=== PATIENT | male | born 1980 | race Caucasian/White ===

== ENCOUNTER 2017-12-30 23:17 | Observation (INO) ==
[2017-12-31] MEDS ORDERED: Morphine Inj 4 MG/ML Vial IV.PUSH PRN (04:15)
[2017-12-31] MEDS ORDERED: Acetaminophen 500 MG Tablet PO PRN (04:15)
[2017-12-31] MEDS: Sod Chloride 0.9% Inj 1,000 ML IV.CONT SCH ×2 (04:36→17:00)
--- NOTE | 2017-12-31 05:43 | CT ---
EXAM DATE: 12/31/2017 5:23 AM EDT AGE/SEX: 37 years / Male INDICATIONS: Chest pain. CLINICAL DATA: This is the patient's initial encounter. Patient reports that signs and symptoms have been present for 1 day and indicates a pain score of 6/10. MEDICAL/SURGICAL HISTORY: . Seizures. . Unspecified brain surgery. RADIATION DOSE: 18.78 CTDI (mGy) COMPARISON: No prior exams available for comparison. TECHNIQUE: Volumetric scanning was performed using a multi-row detector CT scanner during bolus infu suresh of 80 ml Omnipaque 350 (iohexol) nonionic water-soluble contrast as a single exam dose. The bibiana a was post processed with a variety of visualization algorithms including full volume maximum intensi ty projection and sliding thin slab reformation. Using automated exposure control and adjustment of the mA and/or kV according to patient size, radiation dose was kept as low as reasonably achievable t o obtain optimal diagnostic quality images. DICOM format image data is available electronically for review and comparison. FINDINGS: Pulmonary Arteries: No filling defects are seen in the pulmonary arteries out to the subsegmental ve ssels. The left and right pulmonary arteries are normal in diameter. Lung: No infiltrates seen. Effusion: None. Mediastinum: No evidence of mediastinal or hilar adenopathy. Other: The axilla is unremarkable. CONCLUSION: Negative exam. No acute infiltrate or pulmonary embolus to explain current clinical symptoms Electronically signed by: Omer Weston MD 12/31/2017 5:42 AM EDT
[2017-12-31 07:03] LABS: Creatine Kinase 118 U/L (39-308)
[2017-12-31] MEDS ORDERED: Aspirin 325 MG Tablet PO SCH (09:00)
[2017-12-31 09:17] VITALS: RESP 20
--- NOTE | 2017-12-31 11:38 | P.HP ---
History of Present Illness Primary Care Physician: SOFYA MUSA Chief Complaint: Nausea, vomiting History of Present Illness: 37-year-old male with medical history of head injury requiring lobectomy and subsequent seizures. Patient states that he was in normal state of health until he went to a democrat on Sunday. He states that he over consumed on alcohol and food. On the next day Sunday he slept band and missed 2 meals when he finally got out of bed he started having nausea and vomiting that would not go away. Started developing a burning sensation in his epigastric region and up into his chest and because of those reasons he went to the emergency department for evaluation. Patient had workup performed and patient was found to have leukocytosis, signs of dehydration. Patient will chest discomfort was described as a burning sensation starting in his epigastric region going up into his anterior chest. There was a 7 out of 10 on a pain scale. It was resolved after the use of aspirin, Protonix, nitroglycerin. As previously stated he already had nausea and vomiting. He had shortness of breath. He had diaphoresis. Patient had cardiac workup with troponins which was unremarkable. EKG was performed which showed lateral T- wave changes which could have represented old lateral infarct. Because of all of his combining symptoms is recommended by the ER physician that the patient be observed in the hospital for further evaluation and management. As of seen the patient this morning he is doing much better. He is very hungry and wants to eat. Denies any recurrent chest pain or abdominal pain. No longer have any nausea or vomiting. - Diagnosis (1) Nausea & vomiting (2) Chest pain (3) Leukocytosis Review of Systems All other systems reviewed negative except as stated in HPI Constitutional: Reports excessive sweating Cardiovascular: Reports chest pain, Reports shortness of breath Gastrointestinal: Reports abdominal pain, Reports nausea, Reports vomiting PMFSH - History History Provided By: Patient - Medical History Medical History: Medical History (Last Reviewed 12/31/17 @ 11:32 by NIR Coburn) Seizure - Surgical History Surgical History: Surgical History (Last Reviewed 12/31/17 @ 11:32 by NIR Coburn) Hx of brain surgery - Family History Family History: Family History (Last Updated 12/31/17 @ 11:16 by NIR Coburn) Mother History of hypertension Father Family history of brain aneurysm - Tobacco History Second Hand Smoke Exposure: Yes Tobacco Use In Past 30 Days: Yes Smoking Status: Current every day smoker Tobacco Type: Cigarettes Packs Per Day: 0.75 Years Smoked: 18 - Alcohol History How Often Do You Have a Drink Containing Alcohol: 2 to 4 times a month - Substance Use History Substance History: No History of Abuse Medications and Allergies Active Medications: Active Medications Acetaminophen (Tylenol) 500 mg PO Q4H PRN PRN Reason: HEADACHE Hydrocodone Bitart/Acetaminophen ([place] 7.5/325) 1 tab PO Q4H PRN PRN Reason: PAIN SCALE 1 TO 5 Aspirin (Aspirin) 325 mg PO DAILY [facility] Last Admin: 12/31/17 09:03 Dose: 325 mg Sodium Chloride (Ns Inj) 1,000 mls @ 100 mls/hr IV.CONT .Q10H [facility] Last Admin: 12/31/17 04:36 Dose: 100 mls/hr Morphine Sulfate (Morphine Inj) 5 mg IV.PUSH Q10M PRN PRN Reason: PAIN SCALE 6 TO 10 Ondansetron HCl (Zofran Inj) 4 mg IV.PUSH Q6H PRN PRN Reason: Nausea And Vomiting Last Admin: 12/31/17 05:36 Dose: 4 mg Pantoprazole Sodium (Protonix) 40 mg PO DAILY [facility] Last Admin: 12/31/17 09:03 Dose: 40 mg Sodium Chloride (Ns Flush) 2 ml IV.FLUSH BID [facility] Sodium Chloride (Ns Flush) 2 ml IV.FLUSH PRN PRN PRN Reason: FLUSH AFTER USING IV ACCESS Allergies Allergy/AdvReac Type Severity Reaction Status Date / Time No Known Allergies Allergy Unverified 12/30/17 23:21 Home Medications Medication Instructions Recorded Confirmed Type levetiracetam [Keppra] 250 mg PO Q12H 12/30/17 12/31/17 History diazepam 5 mg PO DAILY PRN 12/31/17 12/31/17 History hydrocodone-acetaminophen [[place]] 1 tab PO Q4H PRN MDD 6 12/31/17 12/31/17 History Exam Vital signs: Vital Signs 12/31/17 04:25 12/31/17 05:00 12/31/17 08:00 Temperature 98.9 F 98.1 F Pulse Rate 63 74 64 Respiratory Rate 18 20 Blood Pressure 163/94 H 173/88 H Pulse Oximetry 100 97 Intake & Output 12/30/17 12/31/17 12/31/17 18:59 06:59 18:59 Weight 94.5 kg Other: Weight On Admission 94.5 kg Narrative: GENERAL: Well-developed, well-nourished, in no acute distress. alert and orientated HEENT: Head is normocephalic without any lesions or masses noted. Facial features are symmetric. Eyes: Pupils equal round reactive to light. Extraocular muscles are intact. Conjunctivae were clear. Oropharyngeal: Pharynx without any erythema edema. Tongue is midline without deviation. Buccal mucosa is moist without any masses or lesions NECK: Supple without any masses. Trachea midline no deviation. No JVD, no bruits are appreciated CARDIAC: Regular rhythm, regular rate. S1/S2 are heard. No murmurs gallops or rubs. LUNGS: Clear to auscultation bilaterally. No wheeze, rhonchi or rales. No use of accessory muscles on inspiration or expiration. ABDOMEN: Soft, nontender. Nondistended. Bowel sounds heard in all 4 quadrants. No organomegaly or masses. Negative rebound, negative guarding EXTREMITIES: No edema, pulses are equal bilaterally. No cyanosis or clubbing NEUROLOGY: Mood and affect appear appropriate. Cranial nerves II through XII grossly intact. Muscle strength 5/5 in upper and lower extremities bilaterally. Deep tendon reflexes are 2+ in upper and lower extremities bilaterally. Results - Labs CBC & Chem 7: 12/31/17 11:22 12/31/17 11:22 Labs: Laboratory Results - last 24 hr 12/31/17 06:17 Total Creatine Kinase 118 Troponin I Less than 0.02 L - Imaging Impressions Chest CTA 12/31/17 00:00 CONCLUSION: Negative exam. No acute infiltrate or pulmonary embolus to explain current clinical symptoms Caprini VTE Risk Assessment Caprini VTE Risk Assessment: No/Low Risk (score <= 1) Caprini Risk Assessment Model: Point Value = 1 Point Value = 2 Point Value = 3 Point Value = 5 Age 41-60 Minor surgery BMI > 25 kg/m2 Swollen legs Varicose veins or History of unexplained or recurrent spontaneous Oral contraceptives or hormone replacement Sepsis (< 1 month) Serious lung disease, including pneumonia (< 1 month) Abnormal pulmonary function Acute myocardial infarction Congestive heart failure (< 1 month) History of inflammatory bowel disease Medical patient at bed rest Age 61-74 Arthroscopic surgery Major open surgery (> 45 min) Laparoscopic surgery (> 45 min) Malignancy Confined to bed (> 72 hours) Immobilizing plaster cast Central venous access Age >= 75 History of VTE Family history of VTE Factor V Leiden Prothrombin [id number] Lupus anticoagulant Anticardiolipin antibodies Elevated serum homocysteine Heparin-induced thrombocytopenia Other congenital or acquired thrombophilia Stroke (< 1 month) Elective arthroplasty Hip, pelvis, or leg fracture Acute spinal cord injury (< 1 month) Prophylaxis Regimen: Total Risk Factor Score Risk Level Prophylaxis Regimen 0-1 Low Early ambulation 2 Moderate Order ONE of the following: *Sequential Compression Device (SCD) *Heparin 5000 units SQ BID 3-4 Higher Order ONE of the following medications: *Heparin 5000 units SQ TID *Enoxaparin/Lovenox 40 mg SQ daily (WT < 150 kg, CrCl > 30 mL/min) *Enoxaparin/Lovenox 30 mg SQ daily (WT < 150 kg, CrCl > 10-29 mL/min) *Enoxaparin/Lovenox 30 mg SQ BID (WT < 150 kg, CrCl > 30 mL/min) AND/OR *Sequential Compression Device (SCD) 5 or more Highest Order ONE of the following medications: *Heparin 5000 units SQ TID (Preferred with Epidurals) *Enoxaparin/Lovenox 40 mg SQ daily (WT < 150 kg, CrCl > 30 mL/min) *Enoxaparin/Lovenox 30 mg SQ daily (WT < 150 kg, CrCl > 10-29 mL/min) *Enoxaparin/Lovenox 30 mg SQ BID (WT < 150 kg, CrCl > 30 mL/min) AND *Sequential Compression Device (SCD) Assessment and Plan - Assessment (1) Nausea & vomiting Code(s): R11.2 - Nausea with vomiting, unspecified Status: Acute (2) Chest pain Code(s): R07.9 - Chest pain, unspecified Status: Inactive (3) Leukocytosis Code(s): D72.829 - Elevated white blood cell count, unspecified Status: Inactive - Plan Chest discomfort -Patient with only risk factor of tobacco use. His chest discomfort could be related to the intractable nausea, vomiting. -Secondary to the patient's clinical symptoms risk factors, relief by nitroglycerin patient, possible abnormal EKG we will pursue further cardiac evaluation -Patient has been ruled out for acute coronary event with serial cardiac enzymes are negative -Serial EKGs were reviewed by myself and shows sinus rhythm, however there indicating T-wave changes but appears to have some artifact which patient is very hairy and they did not shave his chest completely for the EKGs. -Discussed with the patient who is well and undergo exercise stress test to rule out any signs of ischemia, considering the patient was told by the ER physician that he has abnormal EKGs and need further evaluation -Exercise stress test was performed and did not indicate any signs of ischemia -Continue aspirin, nitroglycerin, pain control -Continue monitor telemetry Nausea, vomiting, intractable -Patient symptoms are resolved at this time. He is very hungry and wants to eat -Continue PPI Leukocytosis -Likely secondary to patient's nausea, vomiting, reactive -Follow CBC DVT prevention -Low risk, early ambulation Discharge Planning: Discharge home in stable condition Activity: Ad jaye. Diet: Regular diet Medication per medication reconciliation Follow-up with primary medical doctor in 1 week
[2017-12-31 11:47] LABS: Baso # (Auto) 0.7 th/mm3 (0.0-0.2); Baso % (Auto) 4.4 % (0.0-2.0); Hematocrit 46.3 % (39.0-51.0); Hemoglobin 15.8 gm/dL (13.0-17.0); Lymph # (Auto) 2.3 th/mm3 (1.0-4.8); Lymph % (Auto) 15.1 % (9.0-44.0); Mean Corpuscular HGB Conc 34.1 % (32.0-36.0); Mean Corpuscular Hemoglobin 31.8 pg (27.0-34.0); Mean Corpuscular Volume 93.2 fL (80.0-100.0); Mean Platelet Volume 8.1 fL (7.0-11.0); Mono # (Auto) 1.1 th/mm3 (0.0-0.9); Neut # (Auto) 11.2 th/mm3 (1.8-7.7); Neut % (Auto) 73.5 % (16.0-70.0); Platelet Count 332 th/mm3 (150-450); Red Blood Count 4.97 mil/mm3 (4.50-5.90); Red Cell Distribution Width 12.4 % (11.6-17.2); White Blood Count 15.3 th/mm3 (4.0-11.0)
[2017-12-31 11:51] LABS: Chloride 110 meq/L (98-107); Sodium 144 meq/L (136-145)
[2017-12-31 11:56] LABS: Anion Gap 7 meq/L (5-15); Blood Urea Nitrogen 20 mg/dL (7-18); Calcium 8.9 mg/dL (8.5-10.1); Carbon Dioxide 26.8 meq/L (21.0-32.0); Glucose,Random 115 mg/dL (74-106)
[2017-12-31 12:00] LABS: Glomerular Filtration Rate Greater Than 89 mL/min (>89)
[2017-12-31 12:03] LABS: Creatine Kinase 150 U/L (39-308)
[2017-12-31] MEDS ORDERED: levETIRAcetam 250 MG Tablet PO SCH (14:00)
[2017-12-31 17:42] VITALS: BP 146/85; PULSE 86; TEMP 98; O2SAT 97
--- NOTE | 2017-12-31 23:39 | ECG ---
Date Performed: 12/31/2017 Time Performed: 05:23:50 PTAGE: 37 years EKG: SINUS BRADYCARDIA WITH MARKED SINUS ARRHYTHMIA MODERATE INTRAVENTRICULAR CONDUCTION DELAY B ORDERLINE ECG Since the PREVIOUS TRACING , no significant change noted DOCTOR: Joaquin Rodriguez Interpretating Date/Time 12/31/2017 23:39:08
--- NOTE | 2018-01-01 11:13 | ECG ---
Date Performed: 12/31/2017 Time Performed: 11:16:29 PTAGE: 37 years EKG: Sinus rhythm PROBABLE LATERAL MYOCARDIAL INFARCTION ABNORMAL ECG PREVIOUS TRACING : 12/31/2017 05.23 DOCTOR: Vineet Pastor Interpretating Date/Time 01/01/2018 11:12:29
== END 2017-12-31 16:51 | disposition home or self-care (01) ==
LOC: PHEDDLT 23:17 → PH3 23:17
PROVIDERS: ADMIT Family Medicine; ATTEND Family Medicine